=== PATIENT | female | born 1960 | race Caucasian/White ===

== ENCOUNTER 2022-01-24 10:37 | Day surgery (SDC) | payer BC ==
[~2022-01-24] VITALS: Ht 162.6 cm; Wt 82.0 kg
[~2022-01-24 10:37] MED LIST: NS 1,000 ML IV ONE
[2022-01-24] MEDS ORDERED: LIDOCAINE 2% 100MG/5ML SDV (FOR ANES.) As Ordered ONE (12:11)
[2022-01-24] MEDS ORDERED: propofoL 200 MG/20 ML VIAL As Ordered ONE ×2 (12:11→12:45)
[2022-01-24 13:18] VITALS: BP 114/75
== END 2022-01-24 13:20 | disposition home or self-care (01) ==
LOC: M OPP 10:37
PROVIDERS: ATTEND Internal Medicine Gastroenterology
DX: K57.30 Diverticulosis of large intestine without perforation or abscess without bleeding (principal); K52.89 Other specified noninfective gastroenteritis and colitis; K64.0 First degree hemorrhoids; R19.4 Change in bowel habit